=== PATIENT | female | born 1980 | race African-American/Black ===

== ENCOUNTER 2018-07-18 18:19 | Emergency (ER) | payer SELFPAY ==
[~2018-07-18] VITALS: Ht 165.1 cm; Wt 59.0 kg
[2018-07-18 18:55] VITALS: BP 141/83
[2018-07-18] MEDS ORDERED: AMOX500T PO (19:12)
[2018-07-18] MEDS ORDERED: IBUP-1060 PO (19:12)
[2018-07-18] MEDS ORDERED: HYDR-3164 PO (19:12)
[2018-07-18] MEDS: IBUPROFEN 400 MG TABLET. PO ONE (19:26)
[2018-07-18] MEDS: HYDROcodone/APAP 5/325MG 1 TAB TABLET PO ONE (19:26)
[2018-07-18] MEDS: AMOXICILLIN 250 MG CAPSULE. PO ONE (19:26)
--- NOTE | 2018-07-18 21:06 | PHYS DOC ---
Past Medical History Past Medical History: No Pertinent History Past Surgical History: Alcohol Use: None Drug Use: Marijuana Adult General Chief Complaint Chief Complaint: DENTAL PROBLEM HPI HPI Patient is a 37 year old female who presents with dental pain. Patient states she has a couple of teeth in her mouth which are known to be cavities. She does not have a dentist and cannot afford to go to a dentist. Today, she presents to the ER with pain over the right side of her upper molar area secondary to where she has a known bad tooth. No fever or chills. Symptoms have been worsening over the last 5 days. No difficulty swallowing. No sore throat. Review of Systems Review of Systems Constitutional: Denies fever or chills Eyes: Denies HENT: Denies Respiratory: Denies : Denies dysuria Musculoskeletal: Denies back pain Integument: Denies rash Neurologic: Denies headache All other systems were reviewed and found to be within normal limits, except as documented in this note. Current Medications Current Medications Current Medications Medications (Trade) Dose Ordered Sig/Raquel Start Time Stop Time Status Last Admin Dose Admin Acetaminophen/ Hydrocodone Bitart (Lortab 5/325) 1 tab 1X ONCE 07/18/18 19:15 07/18/18 19:19 DC 07/18/18 19:26 1 TAB Amoxicillin (Amoxil) 500 mg 1X ONCE 07/18/18 19:15 07/18/18 19:19 DC 07/18/18 19:26 500 MG Ibuprofen (Motrin) 800 mg 1X ONCE 07/18/18 19:15 07/18/18 19:19 DC 07/18/18 19:26 800 MG Allergies Allergies Allergies Coded Allergies Type Severity Reaction Last Updated Verified No Known Drug Allergies 11/21/13 No Physical Exam Physical Exam Constitutional: Well developed, well nourished, no acute distress, non-toxic appearance HENT: Normocephalic, atraumatic, bilateral external ears normal, oropharynx moist, multiple cavitatious teeth. In the area of concern there is mild gingival inflammation, but no drainable abscess is appreciated. Eyes: EOMI Neck: Normal range of motion Skin: Warm, dry, no erythema Neurologic: Alert and oriented X 3 Psychologic: Affect normal Current Patient Data Vital Signs Vital Signs Date Time Temp Pulse Resp B/P (MAP) Pulse Ox O2 Delivery O2 Flow Rate FiO2 07/18/18 18:55 98.3 99 16 141/83 (102) 100 Room Air 98.3 EKG EKG [] Radiology/Procedures Radiology/Procedures [] Course & Med Decision Making Course & Med Decision Making Pertinent Labs and Imaging studies reviewed. (See chart for details) Patient was evaluated in the ER for dental pain. She had no drainable abscess on physical exam. Floor the mouth was soft. No acute findings in the posterior oral pharynx. The patient was given ibuprofen and [place] and amoxicillin in the ER. She was discharged home with the same and advised to follow-up with a dentist as soon as possible. Otherwise, come back to the ER for any new or worsening symptoms. Dragon Disclaimer Dragon Disclaimer This electronic medical record was generated, in whole or in part, using a voice recognition dictation system. Departure Departure Impression: Primary Impression: Pain, dental Additional Impressions: Chronic dental pain Dental caries Disposition: HOME, SELF-CARE Condition: GOOD Patient Instructions: Pain Medicine Instructions, [id number], Dental Caries- Brief Scripts Amoxicillin (AMOXICILLIN) 500 Mg Tablet 500 MG PO TID for 7 Days, #21 TAB 0 Refills Prov: ARNULFO FLORES DO 07/18/18 Hydrocodone/Apap 5-325 (NORCO 5-325 TABLET) 1 Each Tablet 1-2 EACH PO PRN Q6HRS PRN for SEVERE PAIN, #15 as needed for pain Prov: ARNULFO FLORES DO 07/18/18 Ibuprofen (IBUPROFEN) 800 Mg Tablet 800 MG PO PRN TID PRN for PAIN, #20 TAB take with food or milk to avoid upsetting stomach Prov: ARNULFO FLORES DO 07/18/18 Problem Qualifiers ARNULFO FLORES DO Jul 18, 2018 21:06
== END 2018-07-18 19:34 | disposition home or self-care (01) ==
LOC: ER 18:19
DX: K02.9 Dental caries, unspecified (principal); G89.29 Other chronic pain; Z98.890 Other specified postprocedural states
CPT/HCPCS: 99284